=== PATIENT | male | born 1975 | race Caucasian/White ===

== ENCOUNTER 2019-04-27 09:16 | Emergency (ER) | payer SELFPAY ==
--- NOTE | 2019-04-27 09:18 | ED_ITS ---
HPI - Eye Problem General: Chief complaint: General Medical Stated complaint: Eye hurts Time Seen by Provider: 04/27/19 09:18 Source: patient Mode of arrival: ambulatory Limitations: no limitations History of Present Illness: HPI Narrative: Patient is a 43-year-old male who presents to ED today with complaints of right eye redness, drainage, foreign body sensation that started a couple of days ago; patient states he initially thought something was in it but reports started noticing drainage; reports today he woke up and the left eye is now a little red; no visual changes MD chief complaint: eye pain and eye redness Onset (ago): day(s) Onset description: gradual Duration: constant and progressively worsening Location: both eyes Place: home Mechanism: none Context: recent URI (reports rhinorrhea, nasal congestion) Associated symptoms: Denies fever(s) Treatments Prior to Arrival: irrigated eye Review of Systems Const: Denies: fever or chills Eyes: Reports: eye discharge and eye redness; Denies: change in vision, blurry vision, blind spots, yellow eyes, dry eyes, increased production of tears, floaters, seeing flashes or decreased night vision ENMT: Reports: nasal discharge and nasal congestion; Denies: throat pain, enlarged tonsils or painful swallowing Resp: Denies: productive cough or non-productive cough PFSH ED PFSH: Statuses (acute, chronic, etc) shown below reflect problem list status as previously entered and may not be historically accurate Social History Smoking and tobacco status: former smoker Physical Exam Const: COMMON NORMALS: no apparent distress, average body habitus, oriented x3, alert and well nourished HENMT: COMMON NORMALS: normocephalic, head/scalp atraumatic, external ears normal, EAC's normal, TM's normal bilaterally and external nose normal HEAD & SCALP: normocephalic and atraumatic NOSE: external nose normal EXTERNAL EAR: Yes external ears normal EXTERNAL AUDITORY CANAL: EAC's normal TYMPANIC MEMBRANE: TM's normal bilaterally Eye: COMMON NORMALS: PERRL and EOMs intact bilaterally GENERAL EYE: normal light reflex VISUAL ACUITY: Yes acuity normal VISUAL ZELAYA: No peripheral vision loss ALIGNMENT: Yes alignment normal EYELID: eyelids normal CONJUNCTIVA: Yes conjunctiva abnormal (injected-mild ) positive bilateral SCLERA: sclerae normal CORNEA: Yes corneas normal PUPIL: Yes PERRL DIRECT OPHTHALMOSCOPY: Yes normal light reflex OTHER: Right eye examined with with fluorescein stain; no corneal abrasions noted; no foreign bodies noted Neuro: COMMON NORMALS: oriented x3 SENSORIUM/ORIENTATION: Yes alert Course Vital Signs: Vital signs: Vital Signs Temperature 97.7 F 04/27/19 09:19 Pulse Rate 80 04/27/19 11:30 Respiratory Rate 16 04/27/19 09:19 Blood Pressure 140/80 04/27/19 11:30 Pulse Oximetry 96 04/27/19 11:30 Discharge Plan Discharge Patient Disposition: Home, Self-Care Clinical Impression: Conjunctivitis of both eyes Qualifiers: Conjunctivitis type: acute Acute conjunctivitis type: bacterial Qualified Code(s): H10.33 - Unspecified acute conjunctivitis, bilateral Condition: Stable Prescriptions: New polymyxin B sulf-trimethoprim 10,000 unit- 1 mg/mL drops 3 drop ophthalmic (eye) Q3H 7 Days Qty: 1 RF: 0 Discharge Orders: Discharge Order (Routine); Ordered 04/27/19 Ordered By: Angelique Turk Referrals: Rasta Martins Jr, MD [Family Provider] - Discharge Diet: Usual diet Discharge Activity: Increase activity as tolerated Patient Instructions: Conjunctivitis (ED) Activity Restrictions/Additional Instructions: Follow up with eye doctor in 1-2 wks for continued discomfort. Begin antibiotics promptly. Discharge Date/Time: 04/27/19 11:30 Coding Level of Care Code ED Application Technical Designer for Satnam Burroughs
[2019-04-27 09:19] VITALS: BP 132/80; PULSE 57; RESP 16; TEMP 36.5; O2SAT 98; BMI 23.7
--- NOTE | 2019-04-27 09:54 | PC.NURSE ---
pt c/o matting and exudate with right eye.
[2019-04-27] MEDS: fluorescein 1 mg Strip EYE-RIGHT (11:08)
[2019-04-27 11:30] VITALS: BP 140/80; PULSE 80; O2SAT 96
--- NOTE | 2019-04-28 10:52 | DCPLANNER ---
artist's manager had message to schedule a follow up appointment for patient with Dr. Azar, case hardener called [phone]. artist's manager was unable to speak with patient at this time, a voicemail was left for patient to return shelter case manager phone call.
== END 2019-04-27 11:30 | disposition home or self-care (01) ==
PROVIDERS: Emergency Provider Physician Assistant; Family Provider Family Medicine
DX: H10.33 Unspecified acute conjunctivitis, bilateral (principal); Z87.891 Personal history of nicotine dependence
CPT/HCPCS: 99281

== ENCOUNTER 2019-11-25 21:44 | Emergency (ER) | payer SELFPAY ==
[2019-11-25 22:25] VITALS: BP 137/78; PULSE 72; RESP 18; TEMP 36.8; O2SAT 95; BMI 22.4
--- NOTE | 2019-11-25 22:36 | CTR_ITS ---
PROCEDURE INFORMATION: Exam: CT Abdomen And Pelvis Without Contrast Exam date and time: 11/25/2019 10:43 PM Age: 44 years old Clinical indication: Abdominal pain; Flank; Left; Additional info: Pain, hematuria TECHNIQUE: Imaging protocol: Computed tomography of the abdomen and pelvis without contrast. Radiation optimization: All CT scans at this facility use at least one of these dose optimization techniques: automated exposure control; mA and/or kV adjustment per patient size (includes targeted exams where dose is matched to clinical indication); or iterative reconstruction. COMPARISON: No relevant prior studies available. RADIATION DOSE METRICS: Total DLP (mGy-cm): 1827.6 FINDINGS: Liver: Normal. No mass. Gallbladder and bile ducts: Normal. No calcified stones. No ductal dilation. Pancreas: Normal. No ductal dilation. Spleen: Normal. No splenomegaly. Adrenals: Normal. No mass. Kidneys and ureters: Right kidney nonobstructing renal calyceal stones. Left distal ureter 3.7 mm calculus with moderate hydronephrosis and hydroureter. Stomach and bowel: Unremarkable. No obstruction. No mucosal thickening. Appendix: No evidence of appendicitis. Intraperitoneal space: Unremarkable. No free air. No significant fluid collection. Vasculature: Unremarkable. No abdominal aortic aneurysm. Lymph nodes: Unremarkable. No enlarged lymph nodes. Bladder: Unremarkable as visualized. Reproductive: Unremarkable as visualized. Bones/joints: Unremarkable. No acute fracture. Soft tissues: Unremarkable. CT/CT kidney stone [id number] IMPRESSION: 1. Left distal ureter 3.7 mm calculus with moderate hydronephrosis and hydroureter. 2. Right kidney nonobstructing renal calyceal stones. Radiation Dose CTDIVOL = (mGy): DLP = 1827.6 (mGy-cm)
--- NOTE | 2019-11-25 22:37 | ED_ITS ---
HPI - Male Genitourinary General: Chief complaint: Urogenital-Male Stated complaint: lower abd pain Time Seen by Provider: 11/25/19 22:36 History of Present Illness: HPI Narrative: Patient states he P bladder earlier today while he is at work and he had been able to pee much since he has been having some pain in his left kidney area times a month but is been a lot worse today now radiates down to his left testicle and feels pressure in there MD Complaint: testicle pain and dysuria Onset (ago): day(s) Duration: constant and progressively worsening Location: left testicle and left flank Severity: moderate Severity scale (1-10): 6 Quality: aching Relieving factors: none Exacerbating factors: none Associated symptoms: Reports no associated symptoms and hematuria; Deny nausea or vomiting Review of Systems Const: Denies: fever(s), chills or body aches Eyes: Denies: change in vision or blurry vision ENMT: Denies: throat pain or nasal congestion Card: Denies: chest pain or dyspnea on exertion Resp: Denies: dyspnea, productive cough or non-productive cough GI: Denies: abdominal pain, nausea or vomiting : Reports: difficulty urinating, oliguria, hematuria and other (Flank pain) Musc: Denies: extremity pain Skin/Breast: Denies: rash Neuro: Denies: headache(s) Psych: Denies: anxiety or depression Pako/Lymph: Denies: easy bruising PFSH ED PFSH: Social History Smoking and tobacco status: former smoker Physical Exam Const: COMMON NORMALS: no acute distress, average body habitus and patient oriented x3 HENMT: COMMON NORMALS: normocephalic HEAD & SCALP: normal to inspection and normocephalic FACE & SINUS: normal facial exam Eye: COMMON NORMALS: conjunctivae normal GENERAL EYE: appearance normal, both eyes and all related structures CONJUNCTIVA: Yes conjunctivae normal Neck/C-Spine: COMMON NORMALS: no JVD Chest: COMMONS NORMALS: normal inspection of the chest Resp: COMMON NORMALS: normal respiratory effort and clear to auscultation bilaterally AUSCULTATION: clear to auscultation bilaterally Cardio: COMMON NORMALS: no JVD, regular rate and regular rhythm RATE: regular rate RHYTHM: regular rhythm GI: COMMON NORMALS: Normal to inspection, nondistended, normoactive bowel sounds present : BLADDER/KIDNEY EXAM: Yes CVA tenderness Back/Pelvis: GENERAL BACK: Yes CVA tenderness CVA tenderness: left Extremity: COMMON NORMALS: normal to inspection and full ROM Neuro: COMMON NORMALS: patient oriented x3 Course Vital Signs: Vital signs: Vital Signs Temperature 98.2 F 11/25/19 22:25 Pulse Rate 72 11/25/19 22:25 Respiratory Rate 18 11/25/19 22:25 Blood Pressure 137/78 11/25/19 22:25 Pulse Oximetry 95 11/25/19 22:25 MDM - Male Lab Data: Labs: Lab Results 11/25/19 11/25/19 11/25/19 Range/Units 22:41 22:41 23:01 WBC 10.2 H (4.0-10.0) 10^3/ uL RBC 4.92 (4.1-5.3) 10^6/u L Hgb 14.5 (11.7-16.6) g/dL Hct 45.9 (42.0-52.0) % MCV 93.3 (80-94) fL MCH 29.5 (28.0-34.0) pg MCHC 31.6 (30.0-36.0) g/dL RDW 13.2 (12.1-15.1) % Plt Count 227 (130-400) 10^3/c mm MPV 10.6 H (7.4-10.4) fL Neut % (Auto) 68.1 % Lymph % (Auto) 18.2 % [place] % (Auto) 11.7 % Eos % (Auto) 1.2 % Baso % (Auto) 0.5 % Neut # (Auto) 6.95 (1.8-7.7) 10^3/u L Lymph # (Auto) 1.9 (0.8-4.8) 10^3/u L [place] # (Auto) 1.2 H (0.2-0.9) 10^3/u L Eos # (Auto) 0.1 (0.0-0.8) 10^3/u L Baso # (Auto) 0.1 (0.0-0.1) 10^3/u L Nucleated RBC % (a uto) 0 % Nucleated RBCs # 0.0 /100WBC Sodium 139 (136-145) mmol/L Potassium 3.7 (3.5-5.1) mmol/L Chloride 102 (98-107) mmol/L Carbon Dioxide 27 (22-29) mmol/L Anion Gap 13.7 (5-19) BUN 17 (6-20) mg/dL Creatinine 1.4 H (0.7-1.2) mg/dL GFR Calculation 54.8 L (90-130) mL/min Glucose 151 H (65-115) mg/dL Calculated Osmolal ity 287 (285-295) mOsm/k g Calcium 10.4 (8.5-10.5) mg/dL Total Bilirubin 0.4 (0.15-1.2) mg/dL AST 43 H (0-40) U/L ALT 35 (0-41) U/L Alkaline Phosphata se 67 (40-130) IU/L Total Protein 8.0 (6.6-8.7) g/dL Albumin 4.8 (3.5-5.2) g/dL Globulin 3.2 (1.3-4.6) g/dL Lipase 56 (13-60) U/L Urine Color Yellow (Yellow) Urine Appearance Clear (CLEAR) Urine pH 5 (5-7) Ur Specific Gravit y 1.030 (1.005-1.030) Urine Protein Neg (Negative) Urine Glucose (UA) Norm (Normal) Urine Ketones Negative (Negative) Urine Blood 3+ H (Negative) Urine Nitrate Negative (Negative) Urine Bilirubin 1+ H (NEGATIVE) Urine Urobilinogen 4 H (Negative) mg/dL Ur Leukocyte Aimee ase Negative (Negative) Urine RBC 10-15 H (0-2) /hpf Urine WBC 0-4 H (0-5) /hpf Ur Squamous Epith Cells 0-4 H (0-5) Calcium Oxalate Cr ystal 15-25 H /hpf Amorphous Sediment Not Reportable Urine Bacteria 1+ H (NONE) Urine Mucus 3+ Coding Level of Care Code ED Call Center Trainer for Chg Fwd Exam Comprehensive
[2019-11-25] MEDS: ondansetron 2 mg/ML SDV 2 mL 4 MG IVP (22:50)
[2019-11-25] MEDS: sodium chloride 0.9% 1,000 ML 999 ML IV (22:50)
[2019-11-25 22:53] LABS: Basophils # 0.1 10^3/uL (0.0-0.1); Basophils % 0.5 %; Eosinophils # 0.1 10^3/uL (0.0-0.8); Eosinophils % 1.2 %; Hematocrit 45.9 % (42.0-52.0); Hemoglobin 14.5 g/dL (11.7-16.6); Lymphocytes # 1.9 10^3/uL (0.8-4.8); Lymphocytes % 18.2 %; Mean Corpuscular HGB Conc 31.6 g/dL (30.0-36.0); Mean Corpuscular Hemoglobin 29.5 pg (28.0-34.0); Mean Corpuscular Volume 93.3 fL (80-94); Mean Platelet Volume 10.6 fL (7.4-10.4); Monocytes # 1.2 10^3/uL (0.2-0.9); Monocytes % 11.7 %; Neutrophils # 6.95 10^3/uL (1.8-7.7); Neutrophils % 68.1 %; Nucleated Red Blood Cells % 0 %; Platelet Count 227 10^3/cmm (130-400); Red Blood Count 4.92 10^6/uL (4.1-5.3); Red Cell Distribution Width 13.2 % (12.1-15.1); White Blood Count 10.2 10^3/uL (4.0-10.0)
[2019-11-25] MEDS: ketorolac 30 mg/mL INJ IVP (22:55)
[2019-11-25 23:13] LABS: Alanine Aminotransferase 35 U/L (0-41); Albumin Level 4.8 g/dL (3.5-5.2); Alkaline Phosphatase 67 IU/L (40-130); Anion Gap 13.7 (5-19); Aspartate Amino Transferase 43 U/L (0-40); Blood Urea Nitrogen 17 mg/dL (6-20); Calcium 10.4 mg/dL (8.5-10.5); Carbon Dioxide 27 mmol/L (22-29); Chloride 102 mmol/L (98-107); Globulin 3.2 g/dL (1.3-4.6); Glomerular Filtration Rate 54.8 mL/min (90-130); Glucose 151 mg/dL (65-115); Lipase 56 U/L (13-60); Osmolality Calculated 287 mOsm/kg (285-295); Potassium 3.7 mmol/L (3.5-5.1); Sodium 139 mmol/L (136-145); Total Bilirubin 0.4 mg/dL (0.15-1.2)
[2019-11-25 23:39] LABS: Add Urine Microscopic? YES; Bilirubin Urine 1+ (NEGATIVE); Blood Urine 3+ (Negative); Glucose Urine UA Norm (Normal); Ketones Urine Negative (Negative); Leukocyte Esterase Urine Negative (Negative); Nitrate Urine Negative (Negative); Protein Urine Neg (Negative); Urine Appearance Clear (CLEAR); Urine Color Yellow (Yellow); Urobilinogen Urine 4 mg/dL (Negative); pH Urine 5 (5-7)
[2019-11-25 23:45] LABS: Squamous Epithelial Cell Urine 0-4 (0-5); WBC Urine 0-4 /hpf (0-5)
[2019-11-25 23:46] LABS: Bacteria Urine 1+; Mucus Urine 3+
[2019-11-25 23:47] LABS: Add Urine Culture? Yes; Calcium Oxalate Crystals Urine 15-25 /hpf
[2019-11-26] MEDS: HYDROcodone-acetaminophen 7.5-325 mg Tablet 1 TAB PO (01:05)
[2019-11-26 01:15] VITALS: BP 114/59; PULSE 74; RESP 18; O2SAT 96
--- NOTE | 2019-11-26 01:24 | PC.NURSE ---
i agree with this assessment
== END 2019-11-26 01:20 | disposition home or self-care (01) ==
PROVIDERS: Emergency Medicine; Emergency Provider Nurse Practitioner Family; PCP Family Medicine
DX: R10.9 Unspecified abdominal pain (principal); Z87.891 Personal history of nicotine dependence
CPT/HCPCS: 12345; 74176; 80053; 81001; 83690; 85025; 87086; 96361; 96374; 96375; 99282; 99284; J1885; J2405; J7030

== ENCOUNTER 2021-04-15 16:31 | Emergency (ER) | payer SELFPAY ==
--- NOTE | 2021-04-15 16:54 | XRR_ITS ---
PROCEDURE INFORMATION: Exam: XR Chest Exam date and time: 04/15/2021 4:54 PM Age: 45 years old Clinical indication: Cough; Additional info: Cough x3 weeks TECHNIQUE: Imaging protocol: XR of the chest. Views: 1 view. COMPARISON: CT kidney stone [id number] 11/25/2019 11:29 PM FINDINGS: Lungs: Unremarkable. No consolidation. Pleural spaces: Unremarkable. No pleural effusion. No pneumothorax. Heart/Mediastinum: Unremarkable. No cardiomegaly. Bones/joints: Unremarkable. XR/XR chest 1V portable [id number] IMPRESSION: No acute findings.
[2021-04-15 17:28] VITALS: BP 156/93; PULSE 74; RESP 18; O2SAT 95; BMI 30.3
[2021-04-15 19:16] LABS: Basophils # 0.1 10^3/uL (0.0-0.1); Basophils % 0.6 %; Eosinophils # 0.2 10^3/uL (0.0-0.8); Eosinophils % 2.3 %; Hematocrit 47.6 % (42.0-52.0); Hemoglobin 15.9 g/dL (11.7-16.6); Lymphocytes # 4.4 10^3/uL (0.8-4.8); Lymphocytes % 49.3 %; Mean Corpuscular HGB Conc 33.4 g/dL (30.0-36.0); Mean Corpuscular Hemoglobin 30.9 pg (28.0-34.0); Mean Corpuscular Volume 92.4 fl (80-94); Mean Platelet Volume 10.6 fL (7.4-10.4); Monocytes # 0.9 10^3/uL (0.2-0.9); Neutrophils # 3.36 10^3/uL (1.8-7.7); Neutrophils % 37.5 %; Nucleated Red Blood Cells % 0 %; Platelet Count 223 10^3/cmm (130-400); Red Blood Count 5.15 10^6/uL (4.1-5.3); Red Cell Distribution Width 13.2 % (12.1-15.1)
[2021-04-15 19:43] LABS: Alanine Aminotransferase 72 U/L (0-41); Albumin Level 4.3 g/dL (3.5-5.2); Alkaline Phosphatase 88 IU/L (40-130); Anion Gap 17.2 (5-19); Aspartate Amino Transferase 48 U/L (0-40); Blood Urea Nitrogen 13 mg/dL (6-20); Calcium 9.2 mg/dL (8.5-10.5); Carbon Dioxide 25 mmol/L (22-29); Chloride 102 mmol/L (98-107); Globulin 4.2 g/dL (1.3-4.6); Glomerular Filtration Rate 104.1 mL/min (90-130); Glucose 234 mg/dL (65-115); Lipase 49 U/L (13-60); Osmolality Calculated 298 mOsm/kg (285-295); Potassium 4.2 mmol/L (3.5-5.1); Sodium 140 mmol/L (136-145); Total Bilirubin 0.2 mg/dL (0.15-1.2); Total Protein 8.5 g/dL (6.6-8.7)
--- NOTE | 2021-04-16 00:06 | ED_ITS ---
HPI - Abdominal Pain General: Chief Complaint: Abdominal Pain Stated Complaint: MID ABD PAIN/COUGH Time Seen by Provider: 04/15/21 23:58 History of Present Illness: HPI narrative: Patient is a 45-year-old male comes to the ED with abdominal pain. Patient says that symptoms started approximately 3 or 4 days ago. He was coughing a lot right before abdominal pain started. He says his pain is worse in his abdomen when he is coughing or when he is getting up from a laying or sitting position. He describes the abdominal pain is generalized and a cramping soreness. He rates it a 3 out of 10. Denies any fever, chills, nausea/vomiting, bladder or bowel symptoms. He denies any constipation and states he has had normal daily bowel movements. Associated Symptoms: Denies chills, constipation, diarrhea, dysuria, fever(s), hematochezia, hematuria, nausea and vomiting Review of Systems Const: Denies: fever(s), chills or fatigue Eyes: Denies: change in vision or eye discomfort ENMT: Denies: throat pain, odynophagia, nasal discharge or nasal congestion Card: Denies: chest pain, palpitations, edema, swelling of feet/ankles, dyspnea on exertion or orthopnea Resp: Denies: dyspnea, productive cough or non-productive cough GI: Reports: abdominal pain (generalized muscular abdominal aching pain); Denies: nausea, vomiting, diarrhea, constipation or hematochezia : Denies: flank pain, difficulty urinating, dysuria or hematuria Musc: Denies: neck pain, back pain or extremity swelling Skin/Breast: Denies: rash or new lesions Neuro: Denies: headache(s), numbness in extremities or weakness in extremities PFSH ED PFSH: Social History Smoking and tobacco status: former smoker Physical Exam Const: COMMON NORMALS: no acute distress, patient oriented x3 and alert GENERAL APPEARANCE: cooperative and comfortable HENMT: COMMON NORMALS: normocephalic HEAD & SCALP: normocephalic MOUTH: Normal oral and palatal mucosa present THROAT: posterior oropharynx normal and uvula midline Neck/C-Spine: COMMON NORMALS: supple GENERAL: Yes normal visual inspection Resp: COMMON NORMALS: normal respiratory effort, No retractions, No use of accessory muscles and clear to auscultation bilaterally AUSCULTATION: clear to auscultation bilaterally Cardio: COMMON NORMALS: regular rate, regular rhythm, S1 normal heart sound present, S2 normal heart sound present, No gallops present (Cardio), No clicks present (Cardio), No murmurs present (Cardio) and Peripheral pulses 2+ throughout RATE: regular rate RHYTHM: regular rhythm HEART SOUNDS: S1 normal heart sound present and S2 normal heart sound present PERIPHERAL PULSES: Peripheral pulses 2+ throughout GI: COMMON NORMALS: Soft to palpation, non-tender and no masses AUSCULTATION: Yes normoactive bowel sounds PALPATION: Yes Soft to palpation, Yes Tenderness to palpation present (GI) (Generalized mild tenderness-no local tenderness-likely muscular) and No Hernia present : COMMON NORMALS: Yes no CVA tenderness BLADDER/KIDNEY EXAM: Yes no CVA tenderness Back/Pelvis: COMMON NORMALS: no CVA tenderness Extremity: COMMON NORMALS: normal to inspection Neuro: COMMON NORMALS: patient oriented x3 SENSORIUM/ORIENTATION: Yes alert GAIT: Yes Normal gait present Skin: GENERAL SKIN EXAM: dry skin Course Vital Signs: Vital signs: Vital Signs Pulse Rate 67 04/16/21 01:02 Respiratory Rate 18 04/15/21 17:28 Blood Pressure 139/90 04/16/21 01:02 Pulse Oximetry 95 04/16/21 01:02 MDM - Abdominal Pain MDM Narrative: Medical decision making narrative: Patient is a 45-year-old m adriana comes to the ED with generalized abdominal pain. He describes pain as an aching muscular pain in the abdomen that gets worse if he has to cough for if he is using core muscles. Denies any fever, chills, nausea/vomiting, bladder or bowel symptoms. Denies any constipation. Vitals are stable. Patient has some generalized mild tenderness to abdominal muscles upon palpation. The rest of exam is benign. CBC and CMP are unremarkable. Lipase normal. Chest x-ray showed no acute findings. KUB showed no acute findings or signs of bowel obstruction. Patient appears in no acute distress and is laying comfortably on exam bed. He is stable for discharge. He is diagnosed generalized muscular abdominal pain and sent home with a prescription for Celebrex and cyclobenzaprine. He was told to follow-up with his PCP in 7 to 10 days reevaluation. Return to ED precautions given. Patient understood and agreed with plan. Lab Data: Attestation: I reviewed the patient's lab results. Labs: Lab Results 04/15/21 04/15/21 19:05 19:05 WBC 9.0 10^3/uL 10^3/ uL (4.0-10.0) RBC 5.15 10^6/uL 10^6 /uL (4.1-5.3) Hgb 15.9 g/dL g/dL (11.7-16.6) Hct 47.6 % % (42.0-52.0) MCV 92.4 fl fl (80-94) MCH 30.9 pg pg (28.0-34.0) MCHC 33.4 g/dL g/dL (30.0-36.0) RDW 13.2 % % (12.1-15.1) Plt Count 223 10^3/cmm 10^3 /cmm (130-400) MPV 10.6 fL H fL (7.4-10.4) Neut % (Auto) 37.5 % % Lymph % (Auto) 49.3 % % [place] % (Auto) 10.0 % % Eos % (Auto) 2.3 % % Baso % (Auto) 0.6 % % Neut # (Auto) 3.36 10^3/uL 10^3 /uL (1.8-7.7) Lymph # (Auto) 4.4 10^3/uL 10^3/ uL (0.8-4.8) [place] # (Auto) 0.9 10^3/uL 10^3/ uL (0.2-0.9) Eos # (Auto) 0.2 10^3/uL 10^3/ uL (0.0-0.8) Baso # (Auto) 0.1 10^3/uL 10^3/ uL (0.0-0.1) Nucleated RBC % (a uto) 0 % % Nucleated RBCs # 0.0 /100WBC /100W BC Sodium 140 mmol/L mmol/L (136-145) Potassium 4.2 mmol/L mmol/L (3.5-5.1) Chloride 102 mmol/L mmol/L (98-107) Carbon Dioxide 25 mmol/L mmol/L (22-29) Anion Gap 17.2 (5-19) BUN 13 mg/dL mg/dL (6-20) Creatinine 0.8 mg/dL mg/dL (0.7-1.2) GFR Calculation 104.1 mL/min mL/m in (90-130) Glucose 234 mg/dL H mg/dL (65-115) Calculated Osmolal ity 298 mOsm/kg H mOs m/kg (285-295) Calcium 9.2 mg/dL mg/dL (8.5-10.5) Total Bilirubin 0.2 mg/dL mg/dL (0.15-1.2) AST 48 U/L H U/L (0-40) ALT 72 U/L H U/L (0-41) Alkaline Phosphata se 88 IU/L IU/L (40-130) Total Protein 8.5 g/dL g/dL (6.6-8.7) Albumin 4.3 g/dL g/dL (3.5-5.2) Globulin 4.2 g/dL g/dL (1.3-4.6) Lipase 49 U/L U/L (13-60) Imaging Data ^: CXR: Attestation: I personally reviewed and interpreted this imaging study as follows: Radiologist's impression: [address] [id number] ReportSigned Patient: Alex Leon #: [id number]: 1975Acct#:[id number]/Sex: 45 / MADM Date: 04/15/21Loc: ERRoom/Bed:Attending Dr: Ordering Provider/Ordering MD: Angelique Turk Date of Service: 04/15/21 Procedure(s): XR chest 1V portable [id number] Accession Number(s): [id number] Report Number: [id number] PROCEDURE INFORMATION: Exam: XR Chest Exam date and time: 04/15/2021 4:54 PM Age: 45 years old Clinical indication: Cough; Additional info: Cough x3 weeks TECHNIQUE: Imaging protocol: XR of the chest. Views: 1 view. COMPARISON: CT kidney stone [id number] 11/25/2019 11:29 PM FINDINGS: Lungs: Unremarkable. No consolidation. Pleural spaces: Unremarkable. No pleural effusion. No pneumothorax. Heart/Mediastinum: Unremarkable. No cardiomegaly. Bones/joints: Unremarkable. XR/XR chest 1V portable [id number] IMPRESSION: No acute findings. Dictated By:Rowdy Mayen DOSigned By:Rowdy Mayen DOSigned Date/Time:04/15/21 1812DD/ 1654 KUB: Attestation: I personally reviewed and interpreted this imaging study as follows: Radiologist's impression: [address] [id number] XRay Report Signed Patient: Alex Leon Unit #: [id number] : 1975 Age/Sex: 45 / M ADM Date: 04/15/21 Loc: ER Room/Bed: Attending Dr: Ordering Provider/Ordering MD: Lázaro Mares Date of Service: 04/16/21 Procedure(s): XR KUB portable [id number] Accession Number(s): [id number] Report Number: [id number] PROCEDURE INFORMATION: Exam: XR Abdomen Exam date and time: 04/16/2021 12:07 AM Age: 45 years old Clinical indication: Abdominal pain; Additional info: Abdominal cramping pain TECHNIQUE: Imaging protocol: XR of the abdomen. Views: Frontal supine view of the abdomen. 1 View. COMPARISON: No relevant prior studies available. FINDINGS: Gastrointestinal tract: No dilated bowel to suggest obstruction. Bones/joints: No significant acute finding. Other findings: No definite abnormal masses or specific abnormal calcifications. XR/XR KUB portable [id number] IMPRESSION: 1. Nonspecific abdomen, no evidence of obstruction. 2. Other details discussed above. Dictated By: Isael Woods MD Signed By: Isael Woods MD Signed Date/Time: 04/16/21 0128 DD/ 0007 Discharge Plan Discharge Patient Disposition: Home Clinical Impression: Generalized muscular abdominal pain Condition: Stable Prescriptions: New Celebrex 100 mg capsule 100 mg PO BID PRN (Reason: pain) Qty: 20 RF: 0 cyclobenzaprine 10 mg tablet 10 mg PO BID PRN (Reason: muscle spasm) Qty: 20 RF: 0 No Action hydrocodone-acetaminophen 5-325 mg tablet 1 tab PO Q6H PRN (Reason: pain) Qty: 10 RF: 0 Discharge Orders: Discharge ED (Routine); Ordered 04/16/21 Ordered By: Lázaro Mares Referrals: Rasta Martins Jr, MD [Primary Care Provider] - Discharge Diet: Regular Discharge Activity: Increase activity as tolerated Patient Instructions: Abdominal Pain (ED), Musculoskeletal Pain (ED) Activity Restrictions/Additional Instructions: Follow-up with medical provider as directed in 7 to 10 days reevaluation. Rest and apply cold pack on sore muscles of abdomen double symptoms. Take medications as prescribed. Cyclobenzaprine is a muscle relaxer and can cause some drowsiness so take at night before going to bed. Return to the ER or your medical provider if condition worsens. Please read and understand discharge instructions. Thank you for choosing [facility] for your healthcare needs today. Please realize this is an emergency room and that we are providing you with a medical screening exam and this may not be complete and all inclusive of all the testing and or work up that you may need to determine your ailment or severity of your illness. It is very important that you follow up as instructed or that you return to the Emergency Department should you have concerns or if your condition changes or worsens in any way. Coding Level of Care Code ED Windshield Wiper Repairer for Satnam Burroughs Exam Comprehensive
[2021-04-16 01:02] VITALS: BP 139/90; PULSE 67; O2SAT 95
[2021-04-16 03:04] VITALS: RESP 17
== END 2021-04-16 03:06 | disposition home or self-care (01) ==
PROVIDERS: Physician Assistant; Emergency Provider Physician Assistant; PCP Family Medicine
DX: R10.84 Generalized abdominal pain (principal); Z87.891 Personal history of nicotine dependence
CPT/HCPCS: 71045; 74018; 80053; 83690; 85025; 99283

== ENCOUNTER → 2021-09-30 11:24 | Outpatient (BNVA) | payer SELFPAY | PROVIDERS: PCP Family Medicine; Visit Provider Clinical Nurse Specialist Adult Health | DX: I10 Essential (primary) hypertension (principal); E11.43 Type 2 diabetes mellitus with diabetic autonomic (poly)neuropathy | CPT/HCPCS: 80061; 83036 ==

== ENCOUNTER 2022-08-22 20:50 | Emergency (ER) | payer SELFPAY ==
[2022-08-22 20:56] VITALS: BP 186/89; PULSE 64; RESP 17; TEMP 36.6; O2SAT 96; BMI 26.4
--- NOTE | 2022-08-22 21:12 | XRR_ITS ---
PROCEDURE INFORMATION: Exam: XR Ribs Exam date and time: 08/22/2022 10:24 PM Age: 46 years old Clinical indication: Other: Left rib pain; Patient HX: PT C/O left anterior rib pain and reports he rolled onto his ribs about one week ago. ; Additional info: Injury, bilat lower rib pain/injury TECHNIQUE: Imaging protocol: Radiologic exam of the of the ribs. Views: 3 views. Bilateral ribs. COMPARISON: CR XR chest 1V portable [id number] 04/15/2021 5:09 PM FINDINGS: Bones/joints: Normal. Heart/Mediastinum: Heart is normal size and the lungs are clear. Soft tissues: Normal. XR/XR ribs BI mn 4V w CXR1V [id number] IMPRESSION: 1. No acute findings. 2. If pain persists, recommend chest CT.
[2022-08-23] MEDS: ketorolac 60 mg/2 mL INJ IM (00:11)
[2022-08-23 00:18] VITALS: RESP 19
--- NOTE | 2022-08-23 04:23 | W.ED.ABDPA2 ---
HPI - Abdominal Pain General: Chief Complaint: Abdominal Pain Stated Complaint: abd/rib pain Time Seen by Provider: 08/22/22 22:58 Source: patient Mode of arrival: ambulatory Limitations: no limitations History of Present Illness: Patient presents emergency department today for evaluation treatment of lower rib pain. Patient states that 2 weeks ago he was in the bed of a truck holding a large television. He states he tried to handed over the edge of the truck and, when he noticed it was not reaching the ground he leaned forward further. He states the side of the truck bed was pressing on the underside of his rib cage and states he injured his lower ribs and upper abdomen. Patient has continued to work the last couple of weeks. He said his looked at the tender areas on his lower rib and thought there looked like there was bruising and she was concerned of internal bleeding. Patient is not on any blood thinners. He is not having any difficulty breathing. He is still eating and drinking without difficulty. Patient has not been taking any significant [id number] medications for pain. Review of Systems General: Reports: 10 or more systems reviewed and unremarkable except in HPI and below PFSH ED PFSH: Medical History Erectile dysfunction Essential hypertension Type 2 diabetes mellitus without complications Surgical History No pertinent past surgical history Family History Other CAD (coronary artery disease) Cancer Social History Smoking and tobacco status: former smoker Alcohol intake: current Alcohol intake frequency: few times a month Physical Exam Const: COMMON NORMALS: no acute distress, patient oriented x3 and alert HENMT: COMMON NORMALS: normocephalic, atraumatic and hearing grossly normal bilaterally HEAD & SCALP: normocephalic and atraumatic Eye: COMMON NORMALS: Equal, round and reactive pupils present, EOMs intact bilaterally and conjunctivae normal CONJUNCTIVA: Yes conjunctivae normal PUPIL: Yes Equal, round and reactive pupils present Neck/C-Spine: COMMON NORMALS: full ROM and no JVD Lymph: LYMPHATIC: no lymphadenopathy noted Chest: OTHER: Patient has no obvious hematomas to the chest or upper abdomen. Patient is tender across the base of the anterior ribs bilaterally but, no appreciable crepitus. No signs of any respiratory distress or retractions. Resp: COMMON NORMALS: normal respiratory effort, No retractions and No use of accessory muscles Cardio: COMMON NORMALS: no JVD and regular rate RATE: regular rate Neuro: COMMON NORMALS: patient oriented x3 SENSORIUM/ORIENTATION: Yes alert Psych: COMMON NORMALS: mental status grossly normal, Normal thought process present, cooperative and normal affect THOUGHT PROCESS: Normal thought process present Skin: COMMON NORMALS: no rashes or lesions noted and turgor normal GENERAL SKIN EXAM: no rashes or lesions noted and turgor normal Course Vital Signs: Vital signs: Vital Signs Temperature 97.9 F 08/22/22 20:56 Pulse Rate 64 08/22/22 20:56 Respiratory Rate 19 H 08/23/22 00:18 Blood Pressure 186/89 08/22/22 20:56 Pulse Oximetry 96 08/22/22 20:56 Oxygen Delivery Me thod Room Air 08/22/22 20:56 MDM - Abdominal Pain Medical Decision Making Patient presents today for injury sustained to the ribs 2 weeks ago. 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 At this time, there were no obvious signs of any bony abnormality and no signs of any underlying soft tissue concerns. I did recommend he try and take it easy for several days. I have prescribed him some medication to help with his discomfort but I also warned him not to wrap or bind his ribs. He can use ice or heat in addition to Tylenol for pain to be used in addition to the muscle relaxer, NSAID, and topical pain patch prescribed from the ER today. He was given return precautions regarding his injuries for which she should be seen and reevaluated. Patient verbalized understanding and agreement to treatment plan. Differential Diagnosis Likely abdominal pain (Rib contusion, diaphragm contusion, costochondritis) Lab Data Labs/Radiology: Radiology Impressions Ribs w/Chest X-Ray 08/22/22 21:12 IMPRESSION: 1. No acute findings. 2. If pain persists, recommend chest CT. Discharge Plan Discharge Patient Disposition: Home Clinical Impression: Bilateral contusion of ribs, Chest wall contusion Condition: Stable Prescriptions: New cyclobenzaprine 10 mg tablet 10 mg PO TID PRN (Reason: muscle spasm) Qty: 21 0RF ketorolac 10 mg tablet 10 mg PO Q8H PRN (Reason: pain) 5 Days Qty: 21 0RF lidocaine 4 % adhesive patch,medicated 1 patch topical Q12H Qty: 15 0RF No Action sildenafil [Viagra] 25 mg tablet 25 mg PO DAILY PRN (Reason: sexual activity) Qty: 14 0RF Rx Instructions: administer 30 minutes to 4 hours before activity losartan 100 mg tablet 100 mg PO DAILY Qty: 30 2RF metformin 850 mg tablet 850 mg PO BID Qty: 60 11RF Discharge Orders: Discharge ED (Routine); Ordered 08/23/22 Ordered By: Kat Herndon Referrals: Nam Doll, [employer] [Primary Care Provider] - Discharge Diet: Usual diet Discharge Activity: Increase activity as tolerated Patient Instructions: Rib Contusion (ED) Activity Restrictions/Additional Instructions: X-ray today was read as negative for any signs of bony fracture. Underlying lung tissue shows no acute concerns and diaphragm and upper abdomen show no signs of trauma. Still, as we discussed, rib injuries are extremely painful as ribs are constantly moving with every breath and movement of the body. It sounds like you are very busy at work and have most likely not had much of a chance to rest and avoid strenuous activity. I am providing you some medication to hopefully help with pain and discomfort over the next week or so as you may still be extremely tender in this area. We do not recommend wrapping or binding the ribs as this causes shallow breathing leading to underlying lung tissue injury and possible infection. Coding Level of Care Code ED Adoption Services Manager for Satnam Burroughs
== END 2022-08-23 00:19 | disposition home or self-care (01) ==
PROVIDERS: Emergency Provider Physician Assistant; PCP Clinical Nurse Specialist Adult Health
DX: S20.213A Contusion of bilateral front wall of thorax, initial encounter (principal); W22.09XA Striking against other stationary object, initial encounter; I10 Essential (primary) hypertension; E11.9 Type 2 diabetes mellitus without complications; Z87.891 Personal history of nicotine dependence
CPT/HCPCS: 71111; 96372; 99284; J1885

== ENCOUNTER → 2025-03-30 13:45 | Outpatient (BNVA) | payer SELFPAY | PROVIDERS: PCP Family Medicine; Visit Provider Family Medicine | DX: E11.9 Type 2 diabetes mellitus without complications (principal); I10 Essential (primary) hypertension; N52.1 Erectile dysfunction due to diseases classified elsewhere | CPT/HCPCS: 80053; 80061; 80074; 83036; 84403; 84443; 85025; 87522 ==